=== PATIENT | female | born 1960 | race Caucasian/White ===

== ENCOUNTER 2021-10-24 06:50 | Observation (INO) ==
--- NOTE | 2021-09-21 16:04 | Communication Note ---
Date of Service: September 21, 2021 Dyan from surgeon's office called requesting review of patient to determine if patient will need cardiology pre-op evaluation. Chart not yet ready for PAT review, I advised we cannot make this determination solely based off EKG, chart will be reviewed when ready by PAT, advised they can arrange a PCP pre-op evaluation which will aid our review/PCP additional review of EKG. This was relayed to Amauri as Dyan was no longer available.
--- NOTE | 2021-10-19 15:11 | Anesthesiology Consultation ---
Date of Service October 19, 2021 Assessment & Plan (1) Encounter for pre-operative examination: Chart Review Chart Review: Acceptable Risk for Surgery (pending preop Covid testing results ) and Patient NOT seen in Pre Admission Testing Per nursing assessment 10/19/2021, patient denies any recent travel. No known COVID infection in the past 90 days. Patient is fully vaccinated for COVID. No known Covid positive exposures or Covid related symptoms. Preop Covid testing scheduled 10/21/21= will await results History Surgery Operation Date: 10/24/21 11:00 Proposed Procedures s Bilateral Simple Mastectomy and Left Axillary [place] Lymph Node Biopsy - Han Griggs MD p First Stage Bilateral Breast Reconstruction with Tissue Field Health Officer and Acellular Matrix - Linda Quiñones MD Height/Weight Height: 5 ft 4 in Weight: 75.75 kg Allergies Allergy/AdvReac Type Severity Reaction Status Date / Time No Known Allergies Allergy Unknown Verified 11/10/06 16:18 Medications Home Medications Medication Instructions Recorded Confirmed Last Taken ascorbic acid (vitamin C) 500 mg 500 mg PO QAM 09/08/21 10/19/21 Unknown capsule cholecalciferol (vitamin D3) 10 10 mcg PO QAM 09/08/21 10/19/21 Unknown mcg (400 unit) capsule hydrochlorothiazide 12.5 mg tablet 12.5 mg PO DAILY 09/08/21 10/19/21 Unknown mecobalamin (vitamin B12) 5,000 5,000 mcg PO QAM 09/08/21 10/19/21 Unknown mcg lozenge zinc 50 mg tablet 50 mg PO QAM 09/08/21 10/19/21 Unknown cephalexin 500 mg capsule 500 mg PO TID 7 Days #21 cap 10/12/21 10/19/21 Unknown oxycodone-acetaminophen 5 mg-325 1 tab PO Q4H PRN 3 Days #18 tab 10/12/21 10/19/21 Unknown mg tablet (Percocet) fenofibrate nanocrystallized 145 145 mg PO QAM 10/19/21 10/19/21 Unknown mg tablet omeprazole 20 mg tablet,delayed 20 mg PO QAM 10/19/21 10/19/21 Unknown release Past Medical History Medical History Breast cancer Dx June 2021 in the left breast. GERD (gastroesophageal reflux disease) History of COVID-19 06/2021. Mild headache and sore throat. Hyperlipidemia Hypertension Nausea and vomiting after administration of anesthetic agent Past Family History Family History Sister History of anesthesia reaction patient's sister woke up after "drainage tube" lung surgery unable breathe (heavy smoker) and had to be intubated after the surgery. no other information or details were able to be given. this happened 20+ years in [facility] Past Surgical History Surgical History History of breast biopsy left breast History of colonoscopy History of tonsillectomy History of varicose vein stripping right x2 S/P IRMA (total abdominal hysterectomy) Social History Smoking Status: Former smoker tobacco type: cigarettes Do You Dip or Chew Tobacco: No Smoking End Date: 2009 Hx Alcohol Use: No Hx Substance Use: No substance use type: does not use Lab Results Anesthesia Preop Results Results Anesthesia Widget: WBC 7.44 K/uL (4.8-10.8) 10/12/21 Hgb 15.2 g/dL (12.0-16.0) 10/12/21 Hct 45.3 % (37-47) 10/12/21 Plt 402 K/uL (130-400) H 10/12/21 Na 137 mmol/L (136-145) 10/12/21 K 3.9 mmol/L (3.5-5.1) 10/12/21 Cl 101 mmol/L (98-107) 10/12/21 CO2 29 mmol/L (21-32) 10/12/21 BUN 15 mg/dl (6-23) 10/12/21 Creat 0.88 mg/dl (0.6-1.2) 10/12/21 Glucose Level 87 mg/dl (70-99(Fasting)) 10/12/21 PT 10.9 Seconds (9.0-12.0) 10/12/21 INR 1.0 (0.9-1.1) 10/12/21 Testing Electrocardiogram Date: 09/21/21 Findings: + NSR @ (78bpm ) Low voltage QRS, consider pulmonary disease, percardial effusion, or normal variant Cannot rule out anterior infarct, age undetermined (Had subsequent ECHO done 10/11/21 with no acute issues noted) Echocardiogram Date: 10/11/21 EF: 60-64% LV Function: normal RWMA: + none Other Findings: + diastolic dysfunction (Grade I ); no LVH Valvular Disease: + no significant valvular disease
[~2021-10-24 06:50] MED LIST: LACTATED RINGER'S 1,000 ML IV SCH; ceFAZolin 2000MG 2,000 MG/15 ML SYR IV SCH
--- NOTE | 2021-10-24 07:21 | History & Physical Bridge Note ---
Date of Service October 24, 2021 History & Physical Bridge Note I have examined the patient, reviewed the History & Physical and in the interval since the performance of the History & Physical I have noted the following changes of clinical significance: no changes noted
[2021-10-24] MEDS ORDERED: fentaNYL citrate 100 MCG/2 ML VIAL IV PRN (09:57)
[2021-10-24] MEDS ORDERED: MEPERIDINE HCL 25 MG/ML CARP/VIAL IV PRN (09:57)
[2021-10-24] MEDS ORDERED: METOCLOPRAMIDE HCL INJ 5 MG/ML 2 ML VIAL IV PRN (09:57)
[2021-10-24] MEDS ORDERED: PROMETHAZINE HCL 12.5 MG in SODIUM CHLORIDE 0.9% 50 ML IV PRN ×2 (09:57→17:32)
[2021-10-24] MEDS ORDERED: MoRPHine SULFATE 10 MG/ML CARP/VIAL IV PRN (09:57)
[2021-10-24] MEDS ORDERED: ONDANSETRON INJ 2 MG/ML 2 ML VIAL IV PRN ×2 (09:57→17:32)
[2021-10-24] MEDS ORDERED: ePHEDrine sulfate 50 MG/ML AMP IV PRN (09:57)
[2021-10-24] MEDS ORDERED: ATROPINE SULFATE 0.1 MG/ML 10ML SYR IV PRN (09:57)
[2021-10-24] MEDS ORDERED: SCOPOLAMINE 1 MG TDSY TD SCH (10:00)
[2021-10-24] MEDS ORDERED: SCOPOLAMINE 1 MG TDSY TD ONE (10:01)
[2021-10-24] MEDS ORDERED: MIDAZOLAM HCL 1 MG/ML 2ML VIAL ONE (10:37)
[2021-10-24] MEDS ORDERED: fentaNYL citrate 100 MCG/2 ML VIAL ONE ×2 (10:37→16:34)
--- NOTE | 2021-10-24 10:40 | History & Physical Report ---
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 desires bilateral mastectomy with reconstruction. will need left sentinel lymph node biopsy as well. risks and benefits discussed. all questions answered. consent obtained. To OR for bilateral simple mastectomy; left SLN biopsy; reconstruction with implant expanders (by Dr. Quiñones) History of Present Illness Primary Care Provider: Darleen Bui, left breast DCIS high grade with necrosis; high risk breast cancer patient. desires bilateral mastectomy with reconstruction Allergies Allergy/AdvReac Type Severity Reaction Status Date / Time No Known Allergies Allergy Unknown Verified 10/24/21 07:23 Home Medications Medication Instructions Recorded Confirmed Type ascorbic acid (vitamin C) 500 mg 500 mg PO QAM 09/08/21 10/24/21 History capsule cholecalciferol (vitamin D3) 10 10 mcg PO QAM 09/08/21 10/24/21 History mcg (400 unit) capsule hydrochlorothiazide 12.5 mg tablet 12.5 mg PO DAILY 09/08/21 10/24/21 History mecobalamin (vitamin B12) 5,000 5,000 mcg PO QAM 09/08/21 10/24/21 History mcg lozenge zinc 50 mg tablet 50 mg PO QAM 09/08/21 10/24/21 History cephalexin 500 mg capsule 500 mg PO TID 7 Days #21 cap 10/12/21 10/24/21 Rx oxycodone-acetaminophen 5 mg-325 1 tab PO Q4H PRN 3 Days #18 tab 10/12/21 10/24/21 Rx mg tablet (Percocet) fenofibrate nanocrystallized 145 145 mg PO QAM 10/19/21 10/24/21 History mg tablet omeprazole 20 mg tablet,delayed 20 mg PO QAM 10/19/21 10/24/21 History release Past Med/Surg History Medical History (Updated 10/24/21 @ 10:38 by Han Griggs MD) Breast cancer Dx 06/2021 (left breast) GERD (gastroesophageal reflux disease) History of COVID-19 Dx 06/2021 > Mild headache and sore throat > resolved Hyperlipidemia Hypertension Surgical History History of breast biopsy left breast History of colonoscopy History of tonsillectomy History of varicose vein stripping right x2 Nausea and vomiting after administration of anesthetic agent S/P IRMA (total abdominal hysterectomy) Family History Sister History of anesthesia reaction patient's sister woke up after "drainage tube" lung surgery unable breathe (heavy smoker) and had to be intubated after the surgery. no other information or details were able to be given. this happened 20+ years in [facility] Social History Smoking Status: Former smoker Smoking End Date: 2009; Second Hand Exposure: No; Do You Dip or Chew Tobacco: No; Tobacco Cessation Education Requested by Patient: No Hx Alcohol Use: No Hx Substance Use: No Preferred Language: Bolivian Communication Ability: Effective Power Plant Installer Required: No Beliefs That Will Affect Care: None Current Living Situation: Significant Other Other Information That Helps Us Care for You: No Feels Safe at Home: Yes Safety Concerns: Feels Safe At This Time Assistive Devices: Glasses Review of Systems Review of Systems: All systems reviewed & are unremarkable except as noted in HPI & below Physical Exam Constitutional: WD/WN, vitals as above Eyes: PERRL, conjunctivae normal, anicteric sclerae Neck: trachea midline, no thyromegaly Respiratory: normal respiratory effort, lungs clear to auscultation Cardiovascular: RRR, no murmur, no edema Gastrointestinal (Abdomen): normal bowel sounds, soft, nontender, no hepatosplenomegaly Musculoskeletal: Extremities: no cyanosis and no clubbing Skin: no rashes, warm and dry Psychiatric: A+Ox3, euthymic affect Results & Data Results & Data ([facility]) Vital Signs (Past 12 Hours) Vital Signs Temp Pulse Resp BP Pulse Ox 10/24/21 07:20 36.5 C 83 20 137/86 94
--- NOTE | 2021-10-24 10:45 | Nuclear Medicine Report ---
LYMPHOSCINTIGRAPHY CLINICAL HISTORY: Left breast cancer. PROCEDURE: Using standard sterile technique, 4 periareolar intradermal and one deep injection of 481 uCi of Lymphoseek was placed in the left breast. The patient tolerated the procedure well. There were no immediate complications. Imaging was performed at 15 minutes time and a left axillary node was ma rked for the surgeon. The patient was subsequently transported to the surgical suite. IMPRESSION: 1. Injection of 481 uCi of Lymphoseek into the left breast. 2. A left axillary node was marked for the surgeon. ACT 112: Negative or not required by law. Electronically signed by: Manish Bose M.D. 10/24/2021 10:44 AM
[2021-10-24] MEDS ORDERED: PROPOFOL IV EMULSION 10 MG/ML 20 ML VIAL IV ONE ×2 (11:40→17:13)
[2021-10-24] MEDS ORDERED: ROCURONIUM BROMIDE 10 MG/ML 5 ML VIAL IV ONE ×4 (11:40→13:14)
[2021-10-24] MEDS ORDERED: GENTAMICIN SULFATE 40 MG/ML 2 ML VIAL ONE ×2 (11:41→13:30)
[2021-10-24] MEDS ORDERED: ceFAZolin 330 MG/ML 1 GM VIAL ONE ×2 (11:41→13:30)
[2021-10-24] MEDS ORDERED: LIDOCAINE 1%/EPINEPHRINE 1:100,000 50 ML VIAL ONE (11:41)
[2021-10-24] MEDS ORDERED: BUPIVACAINE 0.25% 30 ML VIAL ONE (11:41)
[2021-10-24] MEDS ORDERED: ACETAMINOPHEN 1000 MG/100 ML IV IV ONE (11:42)
[2021-10-24] MEDS ORDERED: HYDROmorphone INJ 2 MG/ML SYR/VIAL ONE (12:25)
[2021-10-24] MEDS ORDERED: DEXAMETHASONE SOD INJ 4 MG/ML VIAL ONE (13:14)
[2021-10-24] MEDS ORDERED: ONDANSETRON INJ 2 MG/ML 2 ML VIAL ONE (13:14)
[2021-10-24] MEDS ORDERED: LARYING-O-JET KIT (LTA) ONE (13:30)
[2021-10-24] MEDS ORDERED: SODIUM CHLOR/HYPOCHLOROUS ACID 475 ML BTL IR ONE (14:46)
[2021-10-24] MEDS ORDERED: FAMOTIDINE/PF 20 MG/2 ML VIAL IV ONE (14:51)
[2021-10-24] MEDS ORDERED: METOCLOPRAMIDE HCL INJ 5 MG/ML 2 ML VIAL ONE (14:54)
--- NOTE | 2021-10-24 14:59 | Post Operative Brief Note ---
Immediate Post Op Note v1 Date of Surgery October 24, 2021 Pre & Post Diagnosis Operation Date: 10/24/21 11:00 Pre-Op Diagnosis: Ductal Carcinoma in situ of Left Breast Post-Op Diagnosis: Ductal Carcinoma in situ of Left Breast I identified the patient and participated in the time-out.: Yes Procedure Operation Date: 10/24/21 11:00 Actual Procedures s Bilateral Simple Mastectomy and Left Axillary [place] Lymph Node Biopsy(Bilateral) - Han Griggs MD p First Stage Bilateral Breast Reconstruction with Tissue Experimental Rocketsled Mechanic and Acellular Matrix - Linda Quiñones MD Surgeon Han Griggs MD Chief Medical Officer RIGOBERTO Chaudhari assisted with tissue retraction, camera op, closure Estimated Blood Loss 15 Findings Consistent with Post-Op Diagnosis Drains Bright Catheter and Vignesh-Rust Drain
--- NOTE | 2021-10-24 15:07 | Operative Report ---
Post Operative Report Pre & Post Diagnosis Operation Date: 10/24/21 11:00 Pre-Op Diagnosis: Ductal Carcinoma in situ of Left Breast Post-Op Diagnosis: Ductal Carcinoma in situ of Left Breast I identified the patient and participated in the time-out.: Yes Procedure Operation Date: 10/24/21 11:00 Actual Procedures s Bilateral Simple Mastectomy and Left Axillary [place] Lymph Node Biopsy(Bilateral) - Han Griggs MD p First Stage Bilateral Breast Reconstruction with Tissue Summons Server and Acellular Matrix - Linda Quiñones MD Surgeon Han Griggs MD Street Photographer RIGOBERTO Chaudhari assisted with tissue retraction, camera op, closure Estimated Blood Loss 15 Findings Consistent with Post-Op Diagnosis 1 sentinel lymph node, counts 1395; background counts of 13 Specimens Left breast mastectomy Left axillary sentinel lymph node x1 Right breast mastectomy Anesthesia Type General Complications No immediate complications Indications Left breast DCIS, high-grade with necrosis; high risk breast cancer patient Description of Procedure Patient taken to the operating room, placed supine on the operating table. A timeout was performed, SCDs were placed, a Bright catheter was placed. Perioperative antibiotics were administered. The incisions had been previously marked in preop by plastic surgery. After adequate anesthesia and analgesia was obtained, the entire chest wall from the neck to the abdomen was prepped and draped in the normal sterile fashion. We began on the right side. 1% lidocaine with epinephrine was injected into and around the breast tissue. Incision was made with 15 blade scalpel and carried into the level of the breast tissue. Using traction countertraction technique with Allis clamps and direct traction, flaps were raised in the interface between the breast tissue and the subcutaneous tissue overlying the breast. The extent of the dissection superiorly with the clavicle, medially was the sternum, inferiorly it was the rectus sheath, and laterally was the axillary fat pad. Once this dissection was complete, the breast was removed from the underlying pectoralis major muscle with the electrocautery. We were careful to take the fascia of the pectoralis muscle with the specimen. Bleeders were controlled with electrocautery. Breast was removed and sent off the field for specimen after being oriented with sutures and ink. Hemostasis was checked and attended to and was excellent. Wet lap sponges were placed in incision, and attention was turned to the left side. Using the neoprobe, we identified the site of the sentinel lymph node. A separate incision was made in the axilla with a 15 blade scalpel was carried into the level of the subcutaneous tissue. The level of the clavipectoral fascia was obtained, and the clavipectoral fascia was entered. A self-retaining retractor was placed. Using the neoprobe we are able to identify the sentinel lymph node, and this was dissected free circumferentially. The lymphatics were clamped and transected. The count on the sentinel node was 1395. Subsequently, the background radiation was checked and was 13. We then turned our attention to the left breast. Again, the incision was made with 15 blade scalpel and carried into the level of the breast tissue. Using traction countertraction technique with Allis clamps and direct traction, flaps were raised in the interface between the breast tissue and the subcutaneous tissue overlying the breast. The extent of the dissection superiorly with the clavicle, medially was the sternum, inferiorly it was the rectus sheath, and laterally was the axillary fat pad. Once this dissection was complete, the breast was removed from the underlying pectoralis major muscle with the electrocautery. We were careful to take the fascia of the pectoralis muscle with the specimen. Bleeders were controlled with electrocautery. Breast was removed and sent off the field for specimen after being oriented with sutures and ink. Again hemostasis was checked and attention was excellent. Wet lap sponges were placed in the incision. At this point the operation, Dr. Quiñones and her team scrubbed in to complete the placement of bilateral tissue expanders, the details of which will be dictated in a separate operative note. My guest services assistant was necessary throughout the procedure for tissue retraction, possible camera operation, and closure of the wounds. I understand that section 1842(b)(7)(D) of the Social Security act generally prohibits Medicare physician fee schedule payment for the services of assistants at surgery in teaching hospitals when qualified residents are available to furnish such services. I certify that the services for which payment is claimed were medically necessary and that no qualified resident was available to perform the services. I further understand that these services are subject to postpayment review by the Medicare carrier. I attest to the content of the Intraoperative Record and any orders documented therein. Any exceptions are noted below.
--- NOTE | 2021-10-24 17:19 | Post Operative Brief Note ---
PG Immediate Post Op with CF Date of Surgery October 24, 2021 Pre & Post Diagnosis Operation Date: 10/24/21 11:00 Pre-Op Diagnosis: Ductal Carcinoma in situ of Left Breast Post-Op Diagnosis: Ductal Carcinoma in situ of Left Breast I identified the patient and participated in the time-out.: Yes Procedure Operation Date: 10/24/21 11:00 Actual Procedures s Bilateral Simple Mastectomy and Left Axillary [place] Lymph Node Biopsy(Bilateral) - Han Griggs MD p First Stage Bilateral Breast Reconstruction with Tissue Bridge Opener and Acellular Matrix(Bilateral) - Linda Quiñones MD Surgeon Linda Quiñones MD Disc Pad Plate Filler RIGOBERTO Chaudhari assisted with tissue retraction, camera op, closure Estimated Blood Loss 50 Findings Consistent with Post-Op Diagnosis Specimens Specimen Description: A. Right Breast, Long Stitch Lateral, Short Stitch Superior, Ink Deep Margin B. Left [place] Lymph Node; Neoprobe 1395 C. Left Breast, Long Stitch Lateral, Short Stitch Superior, Ink Deep Margin Drains Bright Catheter and Vignesh-Rust Drain Anesthesia Type General
[2021-10-24] MEDS ORDERED: diphenhydrAMINE 50 MG/ML VIAL ONE (17:20)
[2021-10-24] MEDS ORDERED: oxyCODONE/ACETAMINOPHEN 5mg/325mg TAB PO PRN (17:32)
[2021-10-24] MEDS ORDERED: diphenhydrAMINE Capsule 25 MG CAP PO PRN (17:32)
[2021-10-24] MEDS ORDERED: MoRPHine SULFATE 2 MG/ML CARP IV PRN (17:32)
[2021-10-24] MEDS ORDERED: LORazepam 0.5 MG TAB PO PRN (17:32)
[2021-10-24] MEDS ORDERED: diphenhydrAMINE 50 MG/ML VIAL IV PRN (17:32)
[2021-10-24] MEDS ORDERED: MoRPHine SULFATE 4 MG/ML 1 ML CARP\\VIAL IV PRN (17:32)
[2021-10-24] MEDS ORDERED: ACETAMINOPHEN 500 MG TAB PO PRN (17:32)
--- NOTE | 2021-10-24 17:36 | Operative Report ---
PG Post Operative Report Pre & Post Diagnosis Operation Date: 10/24/21 11:00 Pre-Op Diagnosis: Ductal Carcinoma in situ of Left Breast Post-Op Diagnosis: Ductal Carcinoma in situ of Left Breast I identified the patient and participated in the time-out.: Yes Procedure Operation Date: 10/24/21 11:00 Actual Procedures s Bilateral Simple Mastectomy and Left Axillary [place] Lymph Node Biopsy(Bilateral) - Han Griggs MD p First Stage Bilateral Breast Reconstruction with Tissue Rope Cleaner and Acellular Matrix(Bilateral) - Linda Quiñones MD Surgeon Linda Quiñones MD Laser Engraver RIGOBERTO Chaudhari assisted with tissue retraction, camera op, closure Estimated Blood Loss 50 Findings Consistent with Post-Op Diagnosis Specimens per Dr. Griggs Drains SARAH x2 Pravena Kristin Vacs x2 Anesthesia Type General Complications none Indications left breast high grade DCIS, desiring bilateral mastectomy Description of Procedure The patient was marked in the preoperative area. Skin sparing mastectomy flaps were marked. She underwent bilateral mastectomy and left SLN biopsy with Dr. Griggs. After completion of the mastectomies, I began the bilateral reconstruction. began with the right side. Hemostasis was achieved with electrocautery. Pectoralis major muscle was then identified and elevated. Inferior attachments of pectoralis major muscle were divided along the ribs medially to the sternum. None of the sternal attachments were dissected. The retropectoral plane was then developed using electrocautery. Hemostasis was achieved using cautery. Once adequate dissection had been performed, I then chose a piece of perforated medium contour thick AlloDerm which was then used to create a sling for the lower pole. This was first sutured to the inframammary fold using 2-0 Vicryl U stitches. Pocket was then measured and base diameter was 15 cm. Therefore, I selected a YouDroop LTDan style [id number] tissue rn bone marrow transplant with base diameter of 15 cm, fill volume 600 cc. The rn bone marrow transplant was prepared and air was aspirated out. The rn bone marrow transplant was soaked in antibiotic irrigation and Vashe wash followed by antibiotic irrigation was used to irrigate the pocket. All instruments were wiped down and gloves were changed. Rope Cleaner was placed along the inframammary fold as medially as possible. Suture tabs were sutured down to underlying periosteum and fascia using a 2-0 Vicryl suture. The remainder of the rn bone marrow transplant was then enclosed using 2-0 Vicryl running suture to reapproximate the AlloDerm which had been trimmed to size and this was approximated to the pectoralis major muscle. Laterally, this was closed down using 2-0 Vicryl interrupted sutures as well. A 15-Yoruba Noel drain was placed in the wound and brought out through a separate stab incision. Prior to reapproximating the wound the fill port was identified using the magna-finder and accessed using a Fourte needle. A total of 450 mL were placed prior to closure. Wound was reapproximated using 2-0 Vicryl deep dermal suture, 3-0 PDS superficial dermal suture and 3-0 Monocryl running subcuticular suture. Drain was sutured in place using 3-0 nylon. An identical procedure was performed on the right side. The left axillary incision was closed using 2-0 vicryl deep dermal suture, 3-0 PDS superficial dermal suture, 3-0 monocryl running subcuticular suture. Dermabond was applied to the axillary incision. The drain site was dressed using Acticoat dry dressing and Tegaderm. Pravena Kristin vac dressings were placed bilaterally. Procedure was tolerated well. Kacy Rao PA-C and Ro Griggs PA-C were present and scrubbed throughout the entire procedure and was instrumental in providing exposure during elevation of pectoralis muscle and suturing of the AlloDerm as well as filling expanders and assisting in wound closure. I attest to the content of the Intraoperative Record and any orders documented therein. Any exceptions are noted below.
[2021-10-24] MEDS ORDERED: ceFAZolin 2000MG 2,000 MG/15 ML SYR IV ONE (17:38)
--- NOTE | 2021-10-24 18:35 | Surgery Progress Note ---
Date of Service October 24, 2021 Assessment & Plan (1) Encounter for breast reconstruction following mastectomy: Plan: Melina is s/p Bilateral Simple Mastectomy and Left Axillary [place] Lymph Node Biopsy with Dr. Griggs, First Stage Bilateral Breast Reconstruction with Tissue Extrusion Operator and Acellular Matrix. Patient evaluated in PACU. Bilateral wound vacs in place and holding suction. No signs of active bleeding on exam. Pain is controlled. She is aware that Kacy will be by tomorrow (around lunchtime) to see her. Possible discharge to home tomorrow. Subjective Patient seen and examined in PACU. She is doing well. She reports that her pain is controlled at this time. She reports some mild nausea. Physical Exam Physical Exam: On physical exam- bilateral wound vacs in place. They are holding suction and functioning properly. Bilateral SARAH drains in place with less than 10 cc of bloody drainage. No evidence of clots in either drain bulb. Results & Data ([facility]) Vital Signs (Past 12 Hours) Vital Signs Temp Pulse Pulse Resp BP Pulse Ox 10/24/21 18:20 103 H 14 146/90 H 99 10/24/21 18:10 98 H 18 139/84 91 10/24/21 18:00 105 H 21 138/84 92 10/24/21 17:50 100 H 23 159/83 H 94 10/24/21 17:40 103 H 20 141/85 H 93 10/24/21 17:34 36.0 C L 100 H 24 138/79 93 10/24/21 07:20 36.5 C 83 20 137/86 94 PG Care Time/CCT Total # of Minutes Spent Total Time Spent with Patient: Total time spent is greater than 50% in coordination of care (as documented) at patient's floor/unit and/or counseling patient: Coding Level of Care Code None Diagnoses Encounter for breast reconstruction following mastectomy Z42.1
--- NOTE | 2021-10-24 18:38 | Anesthesiology Progress Note ---
Date of Service October 24, 2021 Anesthesia Post Procedure Vital Signs Vital Signs: Temp Pulse Pulse Resp BP Pulse Ox 10/24/21 18:30 36.7 C 100 H 20 147/89 H 96 10/24/21 18:20 103 H 14 146/90 H 99 10/24/21 18:10 98 H 18 139/84 91 10/24/21 18:00 105 H 21 138/84 92 10/24/21 17:50 100 H 23 159/83 H 94 10/24/21 17:40 103 H 20 141/85 H 93 10/24/21 17:34 36.0 C L 100 H 24 138/79 93 10/24/21 07:20 36.5 C 83 20 137/86 94 Transfer of Care Handoff Completed per policy Notes Mental Status: alert / awake / arousable and participated in evaluation Patient Amnestic to Procedure: Yes Nausea / Vomiting: adequately controlled Pain: adequately controlled Airway Patency, RR, SpO2: stable & adequate BP & HR: stable & adequate Hydration State: stable & adequate Anesthetic Complications: no major complications apparent and Pt Satisfied with anesthetic care
[2021-10-24] MEDS: D5W AND 1/2NSS + 20MEQ KCL 20 MEQ/1,000 ML BAG IV SCH (21:07)
[2021-10-24] MEDS: CHECK SCOPOLAMINE PATCH PLACEMENT SCH ×2 (21:07→23:28)
[2021-10-24] MEDS: ceFAZolin 2000MG 2,000 MG/15 ML SYR IV SCH (21:07)
[2021-10-24] MEDS: oxyCODONE/ACETAMINOPHEN 5mg/325mg TAB PO PRN (22:43)
[2021-10-25] MEDS: ceFAZolin 2000MG 2,000 MG/15 ML SYR IV SCH ×2 (03:51→11:34)
[2021-10-25] MEDS: CHECK SCOPOLAMINE PATCH PLACEMENT SCH ×2 (08:10→15:13)
[2021-10-25] MEDS: D5W AND 1/2NSS + 20MEQ KCL 20 MEQ/1,000 ML BAG IV SCH (08:56)
[2021-10-25] MEDS ORDERED: hydroCHLOROthiazide 25 MG TAB PO SCH (09:00)
[2021-10-25] MEDS ORDERED: MULTIVITAMIN TAB PO SCH (09:00)
[2021-10-25] MEDS ORDERED: FENOFIBRATE NANOCRYSTALLIZED 145 MG TABLET PO SCH (09:00)
[2021-10-25] MEDS ORDERED: PANTOprazole 40 MG TAB PO SCH (09:00)
--- NOTE | 2021-10-25 11:51 | Surgery Progress Note ---
Date of Service October 25, 2021 Assessment & Plan (1) Encounter for breast reconstruction following mastectomy: Plan: POD#1 s/p bilateral mastectomy with first stage breast reconstruction using tissue expanders. Melina is doing well. Her pain is well controlled. Drains with appropriate output. Plan to d/c home today when off O2. Office follow-up with telehealth tomorrow. Admission and Anticipated Discharge Date Admission Date: October 24, 2021 Supervising Physician Co-Signing Physician Notes I personally saw and examined this patient and agree with the assessment and plan. Will plan to discharge home later today with phone/telehealth visit later this week. Subjective Melina is resting comfortably in bed. She has good pain control and is tolerating a regular diet. Has been on nc oxygen overnight, tolerating weaning off oxygen today. Physical Exam Physical Exam: on exam, bilateral wound vacs are holding excellent suction. drains were recently emptied- have scant serosang drainage. no erythema of the visible soft tissue. Results & Data ([facility]) Vital Signs (Past 12 Hours) Vital Signs Temp Pulse Resp BP Pulse Ox 10/25/21 07:46 36.8 C 85 18 131/84 96 10/25/21 03:12 36.6 C 92 H 16 115/76 91 PG Care Time/CCT Total # of Minutes Spent Total Time Spent with Patient: Total time spent is greater than 50% in coordination of care (as documented) at patient's floor/unit and/or counseling patient: Coding Level of Care Code None Diagnoses Encounter for breast reconstruction following mastectomy Z42.1
--- NOTE | 2021-10-25 12:14 | Surgery Progress Note ---
Date of Service October 25, 2021 Assessment & Plan (1) Breast cancer: Plan: She is doing quite well postoperative day 1 status post bilateral mastectomy with sentinel lymph node biopsy on the left with implant generation manager placement by Dr. Quiñones. We will continue to advance her diet and encourage ambulation. probable discharge later today as per Dr. Quiñones. Will continue to follow. Admission and Anticipated Discharge Date Admission Date: October 24, 2021 Subjective postop day 1 status post bilateral mastectomy, left sentinel lymph node biopsy, implant generation manager placement by Dr. Quiñones. She is doing very well this morning. She is tolerating a diet. She denies nausea vomiting. She denies fevers or chills. Her pain is well controlled. Physical Exam Physical Exam: on exam, bilateral wound vacs are holding excellent suction. drains were recently emptied- have scant serosang drainage. no erythema of the visible soft tissue. Results & Data ([facility]) Vital Signs (Past 12 Hours) Vital Signs Temp Pulse Resp BP Pulse Ox 10/25/21 07:46 36.8 C 85 18 131/84 96 10/25/21 03:12 36.6 C 92 H 16 115/76 91
[2021-10-25] MEDS: oxyCODONE/ACETAMINOPHEN 5mg/325mg TAB PO PRN (14:17)
--- NOTE | 2021-10-27 09:55 | Discharge Summary ---
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 desires bilateral mastectomy with reconstruction Admission Exam Per Admitting Provider see admission H&P Principal Diagnosis Left breast high grade DCIS, encounter for breast reconstruction following mastectomy Discharge Exam VSS. bilateral breast wound vacs holding suction. no erythema of visible soft tissue. drains with sersoang output Discharge Data Allergies Allergy/AdvReac Type Severity Reaction Status Date / Time No Known Allergies Allergy Unknown Verified 10/24/21 07:23 Procedures Performed Operation Date: 10/24/21 11:00 Actual Procedures s Bilateral Simple Mastectomy and Left Axillary Stout Lymph Node Biopsy(Bilateral) - Han Griggs MD p First Stage Bilateral Breast Reconstruction with Tissue Costumed Character Entertainer and Acellular Matrix(Bilateral) - Linda Quiñones MD Ordered Studies 10/24/21 05:00 US - OR guided needle placemen Routine Hospital Course (1) Encounter for breast reconstruction following mastectomy: Patient presented to [facility] with history of left breast DCIS. She was taken to the OR and underwent bilateral mastectomy by Dr. Griggs and immediate breast reconstruction using tissue expanders and acellular dermal matrix with Dr. Quiñones. There were no intraoperative complications. She was taken to recovery and transferred to med/surg for observation. On POD#1, she was feeling well. She was tolerating a regular diet and ambulating. She required oxygen by nasal cannula overnight, successfully weaned off POD#1. On exam, her vitals were stable. Her incisions were CDI with wound vacs in place holding good suction. Her drains had appropriate output. She was discharged home with instructions to call office for telehealth in one day. (2) Breast cancer: Total Time Total Time Spent Total Time Spent (In Minutes): 20 Discharge Plan Discharge Items Patient Disposition: Home - Self-Care Reason For Visit: Ductal Carcinoma in situ of Left Breast Discharge Diagnosis: s/p bilateral mastectomy with first stage breast reconstruction using tissue expanders Activity: As commented below Non-emergency contact: Surgeon Call non-emergency contact if: you have any medication questions, your pain is worsening, you have a fever, your wound has increased redness and your wound has increased drainage Follow-up/Referrals: Kacy Rao PA-C [Physician Digitizer Operator] - 10/26/21 10:30 am (TELEHEALTH APPT TOMORROW 10/26/21) Darleen Bui, [Primary Care Provider] - Diet: Regular Addtl Attending Provider Instructions: ACTIVITY RECOMMENDATIONS: __Normal activities _x_No bending, lifting or straining. Keep arms at shoulder height or below __No driving __Driving allowed when you are off pain medications _x_Walking permitted __You should have help at home for ___ days DRESSINGS: __No dressings required _x_Keep dressings dry/in place until first office visit. Charge wound vacs as needed. __Remove dressings ___ and leave dressings off __Apply ice ___ days __Remove dressings and reapply garment __Apply antibiotic ointment (Bacitracin, Neosporin, etc) to wounds 3-4 times/day for 10 days BATHING: _x_Keep dressings dry _x_Sponge bathing permitted away from wound vacs __Showering permitted _x_No swimming, hot tubs or soaking in a tub MEDICATIONS: Resume previous medications unless instructed otherwise by your surgeon. _x_Do not use aspirin, Motrin, Advil or Ibuprofen as these may promote bleeding. Please use Tylenol. _x_Prescription(s) provided: pain medication and antibiotics were prescribed at your last office visit. A new prescription was sent to your pharmacy today to help with muscle spasm OTHER INSTRUCTIONS: _x_Record drain output 2-3 times per day SPECIAL CARE INSTRUCTIONS: * It is normal to have a mild fever after surgery. If your temperature is higher than 101.5 degrees F, please call the office at [phone]. * Constipation is a typical side effect of pain medication. An [id number] stool softener will help relieve this. * Leaking around surgical drains may occur and should not cause concern. Sometimes these drains become clogged. If this happens, remove the bulb and milk the clot out of the tube, then replace the bulb. * Drainage from wounds after liposuction is normal and should be expected. Garments will become soiled. You should protect furniture and bedding. This drainage should mostly subside within 2-3 days. Leave garments in place unless instructed to remove them. * If you have unusual drainage from a wound or are concerned you have an infection or have any questions or concerns, please call the office at [phone]. FOLLOW UP VISIT: If not already scheduled, please call the office, , when you return home after surgery to schedule an appointment to be seen in _1__ days.- telehealth is OK Pending Studies at Discharge: Yes Studies:: pathology Stand-Alone Forms: My [facility], Smoking Cessation Medications and DC Order Prescriptions: New diazepam [Valium] 5 mg tablet 5 mg PO Q6H PRN (Reason: alcohol withdrawal) Qty: 10 RF: 0 Continued cholecalciferol (vitamin D3) 10 mcg (400 unit) capsule 10 mcg PO QAM RF: 0 Hold Instructions: SURGERY zinc 50 mg tablet 50 mg PO QAM RF: 0 Hold Instructions: SURGERY hydrochlorothiazide 12.5 mg tablet 12.5 mg PO DAILY RF: 0 cephalexin 500 mg capsule 500 mg PO TID 7 Days Qty: 21 RF: 0 oxycodone-acetaminophen [Percocet] 5-325 mg tablet 1 tab PO Q4H PRN (Reason: pain) 3 Days Qty: 18 RF: 0 fenofibrate nanocrystallized 145 mg Tablet 145 mg PO QAM RF: 0 omeprazole 20 mg Tablet,Delayed Release (Dr/Ec) 20 mg PO QAM RF: 0 Discontinued ascorbic acid (vitamin C) 500 mg capsule 500 mg PO QAM RF: 0 Hold Instructions: SURGERY mecobalamin (vitamin B12) 5,000 mcg lozenge 5,000 mcg PO QAM RF: 0 Hold Instructions: SURGERY Discharge Orders: Discharge Order (Routine); Ordered 10/25/21 Ordered By: Kacy Aguilar/Other Patient Handouts: Mastectomy Admission Data Admit Date/Time: 10/24/21 17:32 Attending Provider: Linda Quiñones Admit Provider: Linda Quiñones Primary Care Provider: Darleen Bui Other Providers: Han Griggs Other Interventions: Discharge Summary Assessment (RN) Last Done: 10/25/21 14:08 Coding Level of Care Code 53094 OBS Care - Discharge Diagnoses Encounter for breast reconstruction following mastectomy Z42.1 Breast cancer C50.919
== END 2021-10-25 16:55 | disposition home or self-care (01) ==
LOC: 3N 06:50 → ASU 06:50